=== PATIENT | male | born 1990 | race Caucasian/White ===

== ENCOUNTER 2018-08-29 06:11 | Emergency (ER) | payer OTHER ==
[2018-08-29 06:21] VITALS: BP 133/59
[2018-08-29 06:46] LABS: BASOPHILS % (AUTO) 0.5 %; EOSINOPHILS # (AUTO) 0.1 10^3/uL (0.0-0.7); EOSINOPHILS % (AUTO) 1.2 %; HGB - HEMOGLOBIN 15.8 g/dL (14.0-18.0); LYMPHOCYTES # (AUTO) 1.8 10^3/uL (1.5-3.5); MEAN CORPUSCULAR HEMOGLOBIN 28.7 pg (27.0-31.0); MEAN CORPUSCULAR HGB CONC 33.1 g/dL (32.0-36.0); MEAN CORPUSCULAR VOLUME 86.8 fL (80.0-94.0); MEAN PLATELET VOLUME 7.5 fL (7.4-11.4); MONOCYTES # (AUTO) 0.5 10^3/uL (0.0-1.0); MONOCYTES % (AUTO) 8.8 %; NEUTROPHILS # (AUTO) 3.6 10^3/uL (1.5-6.6); NEUTROPHILS % (AUTO) 59.5 %; PLT - PLATELET COUNT 238 10^3/uL (130-450)
[2018-08-29 06:57] LABS: ALBUMIN 4.2 g/dL (3.2-5.5); ALBUMIN/GLOBULIN RATIO 1.3 (1.0-2.2); BILIRUBIN,TOTAL 0.7 mg/dL (0.2-1.0); CREATININE 0.9 mg/dL (0.6-1.2); TOTAL PROTEIN 7.5 g/dL (6.7-8.2)
[2018-08-29] MEDS ORDERED: DEXAMETHASONE 10 MG/ML VIAL PO STA (07:34)
[2018-08-29] MEDS ORDERED: CHERRY SYRUP 10 ML UDC PO ONE (07:34)
--- NOTE | 2018-08-29 07:36 | ED Physician Documentation ---
PD HPI ABD PAIN - Stated complaint Stated Complaint: RT ABD PAIN - Chief complaint Chief Complaint: Abd Pain - History obtained from History obtained from: Patient - History of Present Illness Timing - onset: How many weeks ago (2) Timing - duration: Weeks (2) Timing - details: Gradual onset, Still present Quality: Sharp, Dull, Pain Location: RUQ Improved by: Laying still Worsened by: Moving, Position, Palpation. No: Eating Associated symptoms: No: Nausea, Vomiting, Diarrhea, Constipation, Loss of appetite Similar symptoms before: Has not had sx before Recently seen: Not recently seen - Additional information Additional information: 27-year old healthy [employer] male developed some pain in the right upper quadrant of his abdomen over the ribs on the right side and a very specific area about 2 weeks ago. He attributed this to lifting and he has had pain persistent in that area since. He denies any cough congestion or fever he denies any change in his bowel or bladder. Denies any problems with eating or any change in his pain or the nature of his pain with eating or food. Denies any constipation or diarrhea. This morning when he awoke the pain was significantly more sharp and well localized he is come to the emergency department for evaluation. Review of Systems Constitutional: denies: Fever, Chills Eyes: denies: Decreased vision Ears: denies: Ear pain Nose: denies: Rhinorrhea / runny nose, Congestion Throat: denies: Sore throat Cardiac: denies: Chest pain / pressure, Palpitations Respiratory: denies: Dyspnea, Cough GI: reports: Abdominal Pain. denies: Abdominal Swelling, Nausea, Vomiting, Constipation, Diarrhea : denies: Dysuria, Frequency Skin: denies: Rash Musculoskeletal: denies: Neck pain, Back pain, Extremity pain Neurologic: denies: Generalized weakness, Focal weakness, Numbness PD PAST MEDICAL HISTORY - Past Medical History Past Medical History: No Cardiovascular: None Respiratory: None Neuro: None Endocrine/Autoimmune: None GI: None : None HEENT: None Psych: None Musculoskeletal: None Derm: None - Past Surgical History Past Surgical History: No - Allergies Allergies/Adverse Reactions: Allergies Allergy/AdvReac Type Severity Reaction Status Date / Time No Known Drug Allergies Allergy Verified 08/29/18 06:21 - Social History Does the pt smoke?: Yes Smoking Status: Current every day smoker Does the pt drink ETOH?: No Does the pt have substance abuse?: No - Immunizations Immunizations are current?: Yes - POLST Patient has POLST: No PD ED PE NORMAL - Vitals Vital signs reviewed: Yes (normal ) - General General: Alert and oriented X 3, No acute distress, Well developed/nourished - HEENT HEENT: Atraumatic, PERRL, EOMI - Neck Neck: Supple, no meningeal sign, No bony TTP - Cardiac Cardiac: RRR, No murmur - Respiratory Respiratory: No respiratory distress, Clear bilaterally, Other (There is specific tenderness to the chest wall anteriorly over the mid axillary ) - Abdomen Abdomen: Soft, Non tender Results - Vitals Vitals: Vital Signs - 24 hr 08/29/18 06:19 Temperature 36.5 C Heart Rate 72 Respiratory 17 Rate Blood Pressure 133/59 H O2 Saturation 99 - Labs Labs: Laboratory Tests 08/29/18 08/29/18 06:42 06:42 WBC 6.0 RBC 5.50 Hgb 15.8 Hct 47.7 MCV 86.8 MCH 28.7 MCHC 33.1 RDW 14.0 Plt Count 238 MPV 7.5 Neut # (Auto) 3.6 Lymph # (Auto) 1.8 Drew # (Auto) 0.5 Eos # (Auto) 0.1 Baso # (Auto) 0.0 Absolute Nucleated RBC 0.01 Nucleated RBC % 0.1 Sodium 137 Potassium 4.1 Chloride 100 L Carbon Dioxide 26 Anion Gap 11.0 BUN 22 H Creatinine 0.9 Estimated GFR (MDRD) 100 Glucose 90 Calcium 9.0 Total Bilirubin 0.7 AST 19 ALT 30 Alkaline Phosphatase 131 H Total Protein 7.5 Albumin 4.2 Globulin 3.3 Albumin/Globulin Ratio 1.3 Lipase 27 PD MEDICAL DECISION MAKING - ED course Complexity details: reviewed old records, reviewed results, re-evaluated patient, considered differential, d/w patient ED course: 27-year-old male with very well localized chest wall pain appears to have some costochondritis and is administered dexamethasone 10 mg orally. Departure - Departure Disposition: 01 Home, Self Care Clinical Impression: Costochondritis Condition: Stable Instructions: ED Chest Pain Costochondritis Follow-Up: AMBIKA OLSEN [Primary Care Provider] -
== END 2018-08-29 07:58 | disposition home or self-care (01) ==
LOC: ED 06:11
DX: M94.0 Chondrocostal junction syndrome [Tietze] (principal); F17.200 Nicotine dependence, unspecified, uncomplicated
CPT/HCPCS: 36415; 80053; 83690; 85025; 99282; 99283